=== PATIENT | male | born 1990 | race Caucasian/White ===

== ENCOUNTER 2018-05-18 14:19 | Outpatient (RCR) | payer BC | END 2018-08-16 | disposition home or self-care (01) | LOC: LAB 14:19 | PROVIDERS: ATTEND Obstetrics & Gynecology | DX: N46.9 Male infertility, unspecified (principal) | CPT/HCPCS: 89320 ==

== ENCOUNTER 2021-09-08 23:28 | Observation (INO) | payer BC, OTHER ==
[~2021-09-08] VITALS: Ht 182 cm; Wt 137.0 kg
--- NOTE | 2021-09-08 23:44 | ED Cardiac General ---
History of Present Illness General Chief Complaint: Cardiac/General Problems Stated Complaint: HEART PALPITATIONS;DIZZINESS; LOW HR History of Present Illness Date Seen by Provider: Sep 08, 2021 Time Seen by Provider: 23:33 Initial Comments 30 yr M with PMHof irregular heart rhythm since adolescence, is here with c/o intermittent chest palpitations. He had a couple episodes of brief dizziness as well during this time. Pt is not taking medications. He has not seen a bowl sander since he was a teenager. Denies nausea, vomiting, headache, blurry vision, thyroid issues, chest pain, fever, stress. Allergies and Home Medications Allergies Coded Allergies: No Known Drug Allergies (Unverified , 09/08/21) Patient Home Medication List Home Medication List Reviewed: Yes Review of Systems Review of Systems Constitutional: no symptoms reported, dizziness EENTM: No Symptoms Reported Respiratory: No Symptoms Reported Cardiovascular: Irregular Heart Rate, Lightheadedness, Palpitations Gastrointestinal: No Symptoms Reported Genitourinary: No Symptoms Reported Musculoskeletal: no symptoms reported Skin: no symptoms reported Psychiatric/Neurological: No Symptoms Reported Endocrine: No Symptoms Reported Hematologic/Lymphatic: No Symptoms Reported Past Qchejhn-Rtjimw-Zunqbm Hx Patient Social History Tobacco Use?: No (vapes) Use of E-Cig and/or Vaping dev: Yes Use of E-Cig and/or Vaping Jamey: Current Everyday User Substance use?: No Alcohol Use?: No Pt feels they are or have been: No Immunizations Up To Date First/Initial COVID19 Vaccinat: no Past Medical History Surgery/Hospitalization HX: Irregular Heartbeat Physical Exam Vital Signs Vital Signs - First Documented 09/08/21 23:31 Temp 36.6 Pulse 93 Resp 17 B/P (MAP) 176/85 (115) Pulse Ox 98 O2 Delivery Room Air Capillary Refill : Less Than 3 Seconds Height, Weight, BMI Height: '" Weight: lbs. oz. kg; BMI Method: General Appearance: Mild Distress HEENT: PERRL/EOMI, TMs Normal, Normal ENT Inspection, Pharynx Normal Neck: Full Range of Motion, Normal Inspection, Non Tender, Supple Respiratory: Chest Non Tender, Lungs Clear, Normal Breath Sounds, No Accessory Muscle Use, No Respiratory Distress Cardiovascular: Bradycardia, Irregularly Irregular, Tachycardia (heart rate fluctuates between 75 to 120. ) Gastrointestinal: Normal Bowel Sounds, No Organomegaly, Non Tender, Soft Extremity: Normal Capillary Refill, Normal Inspection, Normal Range of Motion, Non Tender, No Calf Tenderness Neurologic/Psychiatric: Alert, Oriented x3, No Motor/Sensory Deficits, Normal Mood/Affect, counseling center director II-XII Norm as Tested Skin: Normal Color, Warm/Dry Progress/Results/Core Measures Results/Orders Lab Results Laboratory Tests Test 09/08/21 01:15 09/08/21 23:45 Range/Units White Blood Count 13.2 H 4.3-11.0 10^3/uL Red Blood Count 4.67 4.30-5.52 10^6/uL Hemoglobin 13.9 13.3-17.7 g/dL Hematocrit 41 40-54 % Mean Corpuscular Volume 87 80-99 fL Mean Corpuscular Hemoglobin 30 25-34 pg Mean Corpuscular Hemoglobin Concent 34 32-36 g/dL Red Cell Distribution Width 13.2 10.0-14.5 % Platelet Count 287 130-400 10^3/uL Mean Platelet Volume 10.3 9.0-12.2 fL Immature Granulocyte % (Auto) 0 % Neutrophils (%) (Auto) 57 42-75 % Lymphocytes (%) (Auto) 30 12-44 % Monocytes (%) (Auto) 9 0-12 % Eosinophils (%) (Auto) 3 0-10 % Basophils (%) (Auto) 0 0-10 % Neutrophils # (Auto) 7.5 1.8-7.8 10^3/uL Lymphocytes # (Auto) 4.0 1.0-4.0 10^3/uL Monocytes # (Auto) 1.2 H 0.0-1.0 10^3/uL Eosinophils # (Auto) 0.4 H 0.0-0.3 10^3/uL Basophils # (Auto) 0.0 0.0-0.1 10^3/uL Immature Granulocyte # (Auto) 0.0 0.0-0.1 10^3/uL Prothrombin Time 12.9 12.2-14.7 SEC INR Comment 0.9 0.8-1.4 Activated Partial Thromboplast Time 30 24-35 SEC Sodium Level 140 135-145 MMOL/L Potassium Level 3.8 3.6-5.0 MMOL/L Chloride Level 104 98-107 MMOL/L Carbon Dioxide Level 25 21-32 MMOL/L Anion Gap 11 5-14 MMOL/L Blood Urea Nitrogen 17 7-18 MG/DL Creatinine 1.01 0.60-1.30 MG/DL Estimat Glomerular Filtration Rate 103 BUN/Creatinine Ratio 17 Glucose Level 109 H 70-105 MG/DL Calcium Level 9.2 8.5-10.1 MG/DL Corrected Calcium 8.9 8.5-10.1 MG/DL Magnesium Level 2.1 1.6-2.4 MG/DL Total Bilirubin 0.2 0.1-1.0 MG/DL Aspartate Amino Transf (AST/SGOT) 16 5-34 U/L Alanine Aminotransferase (ALT/SGPT) 21 0-55 U/L Alkaline Phosphatase 77 40-136 U/L Troponin I < 0.30 <0.30 NG/ML Total Protein 7.1 6.4-8.2 GM/DL Albumin 4.4 3.2-4.5 GM/DL Lipase 30 8-78 U/L Serum Alcohol < 10 <10 MG/DL My Orders Orders - JOSE CASTELAN MD Metoprolol Succinate (Xl) Tab (Toprol Xl (09/08/21 23:45) Ed Iv/Invasive Line Start (09/08/21 23:44) Ns Iv 1000 Ml (Sodium Chloride 0.9%) (09/08/21 23:45) Cbc With Automated Diff (09/08/21:44) Magnesium (09/08/21 23:44) Chest 1 View Ap/Pa Only (09/08/21 23:44) Ekg Tracing (09/08/21:44) Comprehensive Metabolic Panel (09/08/21:44) Protime With Inr (09/08/21:44) Partial Thromboplastin Time (09/08/21 23:44) Monitor-Rhythm Ecg Trace Only (09/08/21 23:44) Lipid Panel (09/09/21 06:00) Aspirin Tablet (Aspirin Tablet) (09/08/21 23:45) Ed Iv/Invasive Line Start (09/08/21 23:44) Lipase (09/08/21 23:44) Thyroid Stimulating Hormone (09/08/21 23:44) Ua Culture If Indicated (09/08/21:44) Drug Screen Stat (Urine) (09/08/21 23:44) Alcohol (09/08/21 23:44) Troponin I Fs (09/08/21 23:44) Ed Admission (Communication) (09/09/21 01:21) Medications Given in ED Current Medications Medications Dose Ordered Sig/Shania Route Start Time Stop Time Status Last Admin Dose Admin Aspirin 325 mg ONCE ONCE PO 09/08/21 23:45 09/08/21 23:49 DC 09/08/21 23:56 325 MG Vital Signs/I&O 09/08/21 09/09/21 23:31 01:22 Temp 36.6 Pulse 93 94 Resp 17 18 B/P (MAP) 176/85 (115) 125/71 Pulse Ox 98 98 O2 Delivery Room Air Room Air Progress Progress Note : Progress Note 1. ACUTE INTERMITTENT ARRHYTHMIAS / PALPITATIONS: - CXR: unremarkable - EKG x1, Troponin normal, other labs unremarkable - On the case packer, pt's heart rate is rapidly and widely fluctuating between 60's to 120's. Varying intermittent rhythms seen on monitor such as Intermittent A-Fib, bigeminy's, PVCs. Due to the wide fluctuation of heart rate, patient was given metoprolol 50 mg extended release so that he would not develop a sudden drop in heart rate. Cardizem drip and bolus was not started on this patient due to the concern for sudden onset bradycardia. After metoprolol was given heart rate is fluctuating between mid 50s to low 90s but still intermittently showing arrhythmias. - Labs -ASA 324mg STAT/ Metoprolol oral / we will also start IV fluids in case blood pressure drops. - Discussed with hospitalist and pt accepted for transfer. Will admit to telemetry Observation. Pt needs cardiology consult in the morning. - Pt will need thyroid panel in the morning, and repeat EKG and troponin. 2. HYPERTENSIVE URGENCY: - Metoprolol lowered BP to normal range. Initial ECG Impression Date: Sep 08, 2021 Initial ECG Impression Time: 23:36 Initial ECG Rate: 93 Initial ECG Rhythm: Normal Sinus Initial ECG Impression: Normal, Nonspecific Changes Initial ECG Comparisson: No Previous ECG Available Comment On the case packer, pt's heart rate is rapidly and widely fluctuating between 80's to 120's. Intermittent A-Fib also seen on the monitor. Departure Communication (Admissions) Time/Spoke to Admitting Phy: 11:53 Pt accepted by hospitalist, Dr Robledo. Impression Primary Impression: Paroxysmal cardiac arrhythmia Additional Impressions: Intermittent palpitations Light-headedness Disposition: 30 STILL A PATIENT Condition: Stable Admissions Decision to Admit Reason: Admit from ER (General) Decision to Admit/Date: Sep 08, 2021 Time/Decision to Admit Time: 23:50 Departure-Patient Inst. Referrals: NO,LOCAL PHYSICIAN (PCP/Family) Primary Care Physician Patient Instructions: Palpitations ED JOSE CASTELAN MD Sep 08, 2021 23:44
[2021-09-08] MEDS ORDERED: meTOproloL SUCCINATE 50 MG (TOPROL XL) TAB PO SCH (23:45)
[2021-09-08] MEDS ORDERED: ASPIRIN 325 MG (5 GR) TABLET PO ONE (23:45)
[2021-09-08 23:56] LABS: BASOPHILS % (AUTO) 0 % (0-10); EOSINOPHILS # (AUTO) 0.4 10^3/uL (0.0-0.3); EOSINOPHILS % (AUTO) 3 % (0-10); HEMATOCRIT 41 % (40-54); HEMOGLOBIN 13.9 g/dL (13.3-17.7); LYMPHOCYTES % (AUTO) 30 % (12-44); MEAN CORPUSCULAR HEMOGLOBIN 30 pg (25-34); MEAN CORPUSCULAR HGB CONC 34 g/dL (32-36); MEAN CORPUSCULAR VOLUME 87 fL (80-99); MEAN PLATELET VOLUME 10.3 fL (9.0-12.2); MONOCYTES # (AUTO) 1.2 10^3/uL (0.0-1.0); MONOCYTES % (AUTO) 9 % (0-12); NEUTROPHILS # (AUTO) 7.5 10^3/uL (1.8-7.8); NEUTROPHILS % (AUTO) 57 % (42-75); PLATELET COUNT 287 10^3/uL (130-400); WHITE BLOOD COUNT 13.2 10^3/uL (4.3-11.0)
[2021-09-08] MEDS: NS IV 1000 ML 1,000 ML IV SCH (23:56)
[2021-09-09 00:06] LABS: INR 0.9 (0.8-1.4); PROTHROMBIN TIME PATIENT 12.9 SEC (12.2-14.7)
[2021-09-09 00:24] LABS: BUN/CREATININE RATIO 17; CALCIUM 9.2 MG/DL (8.5-10.1); CARBON DIOXIDE 25 MMOL/L (21-32); CHLORIDE 104 MMOL/L (98-107); CREATININE SERUM 1.01 MG/DL (0.60-1.30); GFR ESTIMATED 103; GLUCOSE 109 MG/DL (70-105); POTASSIUM 3.8 MMOL/L (3.6-5.0); SODIUM 140 MMOL/L (135-145)
[2021-09-09 00:25] LABS: ALANINE AMINOTRANSFERASE 21 U/L (0-55); ALBUMIN 4.4 GM/DL (3.2-4.5); ALKALINE PHOSPHATASE 77 U/L (40-136); BILIRUBIN,TOTAL 0.2 MG/DL (0.1-1.0); LIPASE 30 U/L (8-78); MAGNESIUM 2.1 MG/DL (1.6-2.4); TOTAL PROTEIN 7.1 GM/DL (6.4-8.2)
[2021-09-09 01:21] LABS: BILIRUBIN,URINE NEGATIVE (NEGATIVE); CLARITY,URINE CLEAR; COLOR,URINE YELLOW; GLUCOSE, URINE (UA) NEGATIVE (NEGATIVE); KETONES,URINE NEGATIVE (NEGATIVE); LEUKOCYTE ESTERASE ,URINE NEGATIVE (NEGATIVE); NITRITE,URINE NEGATIVE (NEGATIVE); PH,URINE 6.5 (5-9); PROTEIN,URINE NEGATIVE (NEGATIVE)
[2021-09-09 01:27] LABS: BACTERIA,URINE NEGATIVE /HPF; SQUAMOUS EPITHELIAL CELL,UR 0-2 /HPF; WBC,URINE 0-2 /HPF
[2021-09-09 01:30] LABS: AMPHETAMINE SCREEN, URINE NEGATIVE (NEGATIVE); BARBITURATE SCREEN URINE NEGATIVE (NEGATIVE); BENZODIAZEPINES SCREEN URINE NEGATIVE (NEGATIVE); CANNABINOID SCREEN, URINE NEGATIVE (NEGATIVE); COCAINE SCREEN URINE NEGATIVE (NEGATIVE); METHADONE STAT NEGATIVE (NEGATIVE); METHAMPHETAMINE SCREEN URINE S NEGATIVE (NEGATIVE); OPIATE SCREEN URINE NEGATIVE (NEGATIVE); OXYCODONE STAT NEGATIVE (NEGATIVE); PROPOXYPHENE STAT NEGATIVE (NEGATIVE); TRICYCLIC ANTIDEPRESSANTS SCRE NEGATIVE (NEGATIVE)
[2021-09-09 02:44] VITALS: BP 125/71
[2021-09-09] MEDS ORDERED: RT-ALBUTEROL/IPRATROPIUM 3 ML (DUONEB) VIAL INH PRN (03:00)
[2021-09-09] MEDS: NS IV 1000 ML 1,000 ML IV SCH (03:36)
[2021-09-09 06:37] LABS: BASOPHILS # (AUTO) 0.1 10^3/uL (0.0-0.1); BASOPHILS % (AUTO) 1 % (0-10); EOSINOPHILS # (AUTO) 0.4 10^3/uL (0.0-0.3); EOSINOPHILS % (AUTO) 4 % (0-10); HEMATOCRIT 40 % (40-54); HEMOGLOBIN 13.4 g/dL (13.3-17.7); LYMPHOCYTES # (AUTO) 3.2 10^3/uL (1.0-4.0); LYMPHOCYTES % (AUTO) 32 % (12-44); MEAN CORPUSCULAR HEMOGLOBIN 29 pg (25-34); MEAN CORPUSCULAR HGB CONC 33 g/dL (32-36); MEAN CORPUSCULAR VOLUME 88 fL (80-99); MEAN PLATELET VOLUME 10.1 fL (9.0-12.2); MONOCYTES # (AUTO) 0.8 10^3/uL (0.0-1.0); MONOCYTES % (AUTO) 8 % (0-12); NEUTROPHILS # (AUTO) 5.3 10^3/uL (1.8-7.8); NEUTROPHILS % (AUTO) 55 % (42-75); PLATELET COUNT 250 10^3/uL (130-400); WHITE BLOOD COUNT 9.7 10^3/uL (4.3-11.0)
[2021-09-09 06:49] LABS: CHLORIDE 107 MMOL/L (98-107); SODIUM 137 MMOL/L (135-145)
[2021-09-09 06:50] LABS: CALCIUM 8.4 MG/DL (8.5-10.1)
[2021-09-09 06:51] LABS: GLUCOSE 101 MG/DL (70-105)
[2021-09-09 06:52] LABS: CARBON DIOXIDE 23 MMOL/L (21-32); TRIGLYCERIDES 118 MG/DL (<150); VLDL CHOLESTEROL 24 MG/DL (5-40)
[2021-09-09 06:55] LABS: BUN/CREATININE RATIO 15; CREATININE SERUM 0.88 MG/DL (0.60-1.30); GFR ESTIMATED 119
[2021-09-09 06:57] LABS: CHOLESTEROL 139 MG/DL (< 200)
[2021-09-09 06:58] LABS: HDL CHOLESTEROL 32 MG/DL (40-60)
--- NOTE | 2021-09-09 07:06 | Diagnostic Imaging Report ---
INDICATION: Heart palpitations. COMPARISON: None available. FINDINGS: The lungs appear clear without focal infiltrate or consolidation. There are no findings of an effusion. There is no evidence of a pneumothorax. Heart size and mediastinal contours appear appropriate. Pulmonary vascularity appears within normal limits. There is no acute or suspicious osseous abnormality demonstrated. IMPRESSION: No radiographic evidence of an acute cardiopulmonary process. Dictated by: Dictated on workstation # [id number]
[2021-09-09] MEDS ORDERED: meTOproloL SUCCINATE 50 MG (TOPROL XL) TAB PO SCH (09:00)
[2021-09-09] MEDS ORDERED: FLECAINIDE 100 MG (TAMBOCOR) TAB PO SCH (09:00)
--- NOTE | 2021-09-09 09:05 | Consultation-Cardiology ---
HPI-Cardiology Cardiology Consultation: Date of Consultation 09/09/2021 Date of Admission 09/08/2021 Attending Physician Dona Toure MD Admitting Physician No,Local Physician Consulting Physician MAURICIO CERDA JR, MD HPI: Time Seen by a Provider: 09:00 Chief Complaint: Reason for consultation: Paroxysmal atrial fibrillation I had the pleasure of seeing Titus on the cardiac stepdown unit at [facility] in [place], [place] this morning. When he was a teenager, he was having some issues with palpitations. From what he can remember, he had seen a pediatric dental hygienist at [facility] in [place]. He had undergone a stress test and Holter monitor. He is not sure what was the final diagnosis but he was not given any medication. He did not follow-up with pediatric cardiology. He was in his usual state of health until last evening when he started to have palpitations. He would feel like he would have 3 or 4 fast heartbeats and then this would go back to normal. He denies associated symptoms. He told his about this who is a nurse. She checked his pulse and also listened to his heart and could hear the skipping. Then she checked his pulse oximeter and his heart rate was dropping into the 40s. He was still not having any symptoms other than the palpitations. She became concerned and brought him to [facility] emergency room. He was then transferred to our facility for further treatment and evaluation. His initial electrocardiogram showed sinus rhythm with premature supraventricular complexes but in the middle of the night, his telemetry showed atrial fibrillation. A follow-up electrocardiogram was performed which confirmed atrial fibrillation. A cardiology consultation was then requested. He is still having some palpitations off and on. From time to time he will get lightheaded spells if he leans over and stands up too quickly but denies syncope. He denies chest discomfort, dyspnea, paroxysmal nocturnal dyspnea, orthopnea, or lower extremity edema. He does use electronic cigarettes with nicotine but does not smoke regular cigarettes and denies illegal drug use. He has no history of hypertension, diabetes, coronary artery disease, heart failure, or stroke. His reports that he snores but has never been tested for sleep apnea. Certain portions of this document may have been dictated utilizing voice recognition technology. Inherent to this technology, typographical and grammatical errors may exist. As much as I am diligent to identify and correct these mistakes, some errors may remain in the document. Review of Systems-Cardiology Review of Systems Other comments Review of 10 organ systems is as per the history of present illness, otherwise negative. TSM-Rhsaav-Cdavmp Hx Patient Social History Marrital Status: Smoking Status: Current Someday Smoker Have you traveled recently?: No Alcohol Use?: No Pt feels they are or have been: No Past Medical History PMH As described under Assessment. Family Medical History Family Medical History: The patient does not know of any family history of premature coronary artery disease in first-degree relatives. Allergies and Home Medications Allergies Coded Allergies: No Known Drug Allergies (Unverified , 09/08/21) Patient Home Medication List Home Medication List Reviewed: Yes No Active Prescriptions or Reported Meds Exam Vital Signs Vital Signs Date Time Temp Pulse Resp B/P (MAP) Pulse Ox O2 Delivery O2 Flow Rate FiO2 09/09/21 13:00 107 09/09/21 12:00 17 112/64 96 Room Air 09/09/21 08:00 36.7 Physical Exam General: Alert. No acute distress. Well nourished and appears stated age. He is obese. Eye: Extraocular movements are intact. Conjunctivae are clear. There are no xanthelasma. HENT: Normocephalic. Atraumatic. Carotid pulsations 2/2 without bruits. Neck: Jugular venous pressure does not appear elevated. No thyromegaly appreciated. Respiratory: Lungs are clear to auscultation. Respirations are non-labored. Breath sounds are equal. Symmetrical chest wall expansion. Cardiovascular: Normal rate. Irregular rhythm. No murmur. No gallop. Point of maximal impulse is not appear displaced. Good pulses equal in all extremities. No edema. Gastrointestinal: Soft. Normal bowel sounds. Skin: Skin turgor is normal. There is no pallor. Musculoskeletal: No kyphosis or scoliosis appreciated. Neurologic: Alert and oriented to person, place, time. Cranial nerves 3-12 appear grossly intact. The patient has good motor tone strength in the upper and lower extremities bilaterally. Psychiatric: Cooperative. Appropriate mood & affect. Labs Laboratory Tests Test 09/08/21 23:45 09/09/21 06:30 Range/Units White Blood Count 13.2 H 9.7 4.3-11.0 10^3/uL Red Blood Count 4.67 4.58 4.30-5.52 10^6/uL Hemoglobin 13.9 13.4 13.3-17.7 g/dL Hematocrit 41 40 40-54 % Mean Corpuscular Volume 87 88 80-99 fL Mean Corpuscular Hemoglobin 30 29 25-34 pg Mean Corpuscular Hemoglobin Concent 34 33 32-36 g/dL Red Cell Distribution Width 13.2 13.1 10.0-14.5 % Platelet Count 287 250 130-400 10^3/uL Mean Platelet Volume 10.3 10.1 9.0-12.2 fL Immature Granulocyte % (Auto) 0 0 % Neutrophils (%) (Auto) 57 55 42-75 % Lymphocytes (%) (Auto) 30 32 12-44 % Monocytes (%) (Auto) 9 8 0-12 % Eosinophils (%) (Auto) 3 4 0-10 % Basophils (%) (Auto) 0 1 0-10 % Neutrophils # (Auto) 7.5 5.3 1.8-7.8 10^3/uL Lymphocytes # (Auto) 4.0 3.2 1.0-4.0 10^3/uL Monocytes # (Auto) 1.2 H 0.8 0.0-1.0 10^3/uL Eosinophils # (Auto) 0.4 H 0.4 H 0.0-0.3 10^3/uL Basophils # (Auto) 0.0 0.1 0.0-0.1 10^3/uL Immature Granulocyte # (Auto) 0.0 0.0 0.0-0.1 10^3/uL Prothrombin Time 12.9 12.2-14.7 SEC INR Comment 0.9 0.8-1.4 Activated Partial Thromboplast Time 30 24-35 SEC Sodium Level 140 137 135-145 MMOL/L Potassium Level 3.8 4.0 3.6-5.0 MMOL/L Chloride Level 104 107 98-107 MMOL/L Carbon Dioxide Level 25 23 21-32 MMOL/L Anion Gap 11 7 5-14 MMOL/L Blood Urea Nitrogen 17 13 7-18 MG/DL Creatinine 1.01 0.88 0.60-1.30 MG/DL Estimat Glomerular Filtration Rate 103 119 BUN/Creatinine Ratio 17 15 Glucose Level 109 H 101 70-105 MG/DL Calcium Level 9.2 8.4 L 8.5-10.1 MG/DL Corrected Calcium 8.9 8.5-10.1 MG/DL Magnesium Level 2.1 1.6-2.4 MG/DL Total Bilirubin 0.2 0.1-1.0 MG/DL Aspartate Amino Transf (AST/SGOT) 16 5-34 U/L Alanine Aminotransferase (ALT/SGPT) 21 0-55 U/L Alkaline Phosphatase 77 40-136 U/L Troponin I < 0.30 < 0.028 <0.028 NG/ML Total Protein 7.1 6.4-8.2 GM/DL Albumin 4.4 3.2-4.5 GM/DL Lipase 30 8-78 U/L Thyroid Stimulating Hormone (TSH) 5.90 H 3.10 0.35-4.94 UIU/ML Serum Alcohol < 10 <10 MG/DL D-Dimer < 0.27 0.00-0.49 UG/ML Triglycerides Level 118 <150 MG/DL Cholesterol Level 139 < 200 MG/DL LDL Cholesterol Direct 97 1-129 MG/DL VLDL Cholesterol 24 5-40 MG/DL HDL Cholesterol 32 L 40-60 MG/DL Radiology ECHOCARDIOGRAM (09/09/2021): 1. This is a technically difficult study due to patient's body habitus. 2. Left ventricle: The cavity size is normal. There is moderate concentric hypertrophy. Systolic function is normal. The estimated ejection fraction is 55- 60%. There are no regional wall motion abnormalities identified on this technically difficult study. Left ventricular diastolic function parameters are normal. 3. Pulmonary arteries: The estimated pulmonary artery systolic pressure is 21 mmHg assuming a right atrial pressure of 5 mmHg. ECG Impression ECG Comment Electrocardiogram performed this morning at 04 55 shows sinus rhythm with premature supraventricular complexes and nonspecific inferior T wave changes. Electrocardiogram obtained from the emergency room last evening shows sinus rhythm. Electrocardiogram obtained from this morning shows atrial fibrillation with a ventricular rate of 102 bpm with 1 premature ventricular complex versus a berrantly conducted atrial fibrillation. Diagnosis/Problems Diagnosis/Problems (1) Paroxysmal atrial fibrillation Assessment & Plan: This appears to be a new finding in this patient. He does seem to be symptomatic with the atrial fibrillation. He does not have dilated atria which is suggestive that he may not be having a significant amount of atrial fibrillation prior to this current episode. His [id number] score is 0. He has been started on metoprolol succinate for rate control. I will also start him on flecainide 100 mg twice daily for rhythm management. He received 1 dose of flecainide this morning but remains in atrial fibrillation. I will give him another 200 mg of flecainide now. He can probably be discharged home later this afternoon with flecainide 200 mg twice daily and metoprolol succinate 50 mg daily. As long as he converts to sinus rhythm before he is discharged, he will not necessarily need oral anticoagulation. (2) Morbid obesity Assessment & Plan: Obesity certainly increase the risk of recurrent atrial fibrillation. He needs to work on weight loss. MAURICIO CERDA JR, MD Sep 09, 2021 09:05
[2021-09-09] MEDS ORDERED: FLECAINIDE 100 MG (TAMBOCOR) TAB PO NR (15:30)
[2021-09-09] MEDS ORDERED: ACETAMINOPHEN 325 MG TABLET PO PRN (16:30)
[2021-09-09] MEDS ORDERED: APIXABAN 5 MG (ELIQUIS) TABLET PO NR (17:30)
[2021-09-09] MEDS ORDERED: FLEC100T PO (17:43)
[2021-09-09] MEDS ORDERED: APIX5TAB PO (17:43)
[2021-09-09] MEDS ORDERED: METO50TA7 PO (17:43)
[2021-09-09] MEDS ORDERED: APIXABAN 5 MG (ELIQUIS) TABLET PO SCH (21:00)
== END 2021-09-09 18:10 | disposition home or self-care (01) ==
LOC: EDUNIT# 23:28 → ER FS 23:30 → CSD 09-09 02:06
PROVIDERS: ADMIT Internal Medicine; ATTEND Internal Medicine
DX: I48.0 Paroxysmal atrial fibrillation (principal); I49.3 Ventricular premature depolarization; R00.2 Palpitations; R42 Dizziness and giddiness; F17.290 Nicotine dependence, other tobacco product, uncomplicated; E66.01 Morbid (severe) obesity due to excess calories; Z68.41 Body mass index [BMI] 40.0-44.9, adult
CPT/HCPCS: 36415; 71045; 80048; 80053; 80061; 80306; 81000; 83690; 83735; 84436; 84443 ×2; 84484 ×2; 85025; 85379; 85610; 85730; 93005 ×2; 93041; 93306; 94760; 99284; G0480; 80320

== ENCOUNTER → 2021-10-20 | Outpatient (CLI) | payer OTHER ==
[~2021-10-20] MED LIST: APIX5TAB PO; FLEC100T PO; METO50TA7 PO
[2021-10-20 14:08] LABS: POTASSIUM 4.4 MMOL/L (3.6-5.0)
[2021-10-20 14:09] LABS: CALCIUM 9.7 MG/DL (8.5-10.1); CREATININE SERUM 1.06 MG/DL (0.60-1.30)
== END ==
LOC: LAB FS 13:19
DX: I10 Essential (primary) hypertension (principal)
CPT/HCPCS: 36415; 80048